=== PATIENT | male | born 1990 | race Caucasian/White ===

== ENCOUNTER 2017-08-20 15:04 | Emergency (ER) | payer OTHER, BC ==
[~2017-08-20] VITALS: Ht 195.6 cm; Wt 138.2 kg
[~2017-08-20 15:04] MED LIST: NO HOME MEDICATIONS
[2017-08-20 15:08] VITALS: BP 151/88; TEMP 97.8
[2017-08-20] MEDS ORDERED: ZESTRIL 10MG10 MG PO (15:34)
[2017-08-20] MEDS ORDERED: NORCO 325 MG-51 TAB PO (16:17)
[2017-08-20 17:32] VITALS: PULSE 82
== END 2017-08-20 17:32 | disposition home or self-care (01) ==
LOC: COL.ER 15:04
DX: S50.312A Abrasion of left elbow, initial encounter (principal); W18.39XA Other fall on same level, initial encounter
CPT/HCPCS: Q4050